=== PATIENT | male | born 1945 | race Caucasian/White ===

== ENCOUNTER → 2016-07-17 | Outpatient (CLI) | payer MEDICARE ==
--- NOTE | 2016-07-17 11:13 | CT ---
EXAMINATION TYPE: CT sinus wo con DATE OF EXAM: 07/17/2016 8:35 AM COMPARISON: 08/02/2012 HISTORY: 70-year-old male sinusitis, pain. CT DLP: 563 mGycm Automated exposure control for dose reduction was used. TECHNIQUE: Noncontrast axial views of the paranasal sinuses were obtained. Coronal reconstructions pe rformed. FINDINGS: There is mild mucosal thickening throughout the ethmoid air cells and the right maxillary sinus. Smal l air-fluid levels are present in both maxillary sinuses. Reactive gil- osteogenesis is not seen. There is no destruction of the osseous landry of the paranasal sinuses. The osteomeatal complexes are patent. Very minimal rightward nasal septal bowing. The imaged brain and orbits are normal in appearance. Mastoid air cells and middle ear cavities are well pneumatized. Reformatted images confirm above findings. IMPRESSION: 1. Small air-fluid levels in the maxillary sinuses suggest acute sinusitis. 2. Mild chronic mucosal thickening within the ethmoid air cells and right maxillary sinus.
== END | disposition home or self-care (01) ==
LOC: RADCTMAIN 08:06
PROVIDERS: ATTEND Otolaryngology
DX: J34.89 Other specified disorders of nose and nasal sinuses (principal)
CPT/HCPCS: 70486

== ENCOUNTER → 2021-01-03 | Outpatient (CLI) | payer MEDICARE | END | disposition home or self-care (01) | LOC: LABWHC1 16:10 | PROVIDERS: ATTEND Orthopaedic Surgery | DX: Z01.818 Encounter for other preprocedural examination (principal); R94.31 Abnormal electrocardiogram [ECG] [EKG] | CPT/HCPCS: 36415; 93005 ==

== ENCOUNTER 2021-01-07 11:01 | Day surgery (SDC) | payer MEDICARE ==
[2021-01-02 11:21] VITALS: BMI 33.0
--- NOTE | 2021-01-06 08:40 | HP ---
HISTORY AND PHYSICAL CHIEF COMPLAINT: Right knee pain. HISTORY OF PRESENT ILLNESS: Patient is a 75-year-old retired male who presents with progressive right knee pain for the past several years. He notes pain with weightbearing activities that severely limits him. He also notes stiffness and swelling. He has tried medications in addition to injections with only partial temporary relief. PAST MEDICAL HISTORY: Significant for hypercholesterolemia, hypertension, and arthritis. PAST SURGICAL HISTORY: Significant for sinus surgery. CURRENT MEDICATIONS: Aspirin, lisinopril, ranitidine, simvastatin, ibuprofen. ALLERGIES: He denies drug allergies. FAMILY HISTORY: Significant for heart disease and cancer. SOCIAL HISTORY: Significant for current social alcohol use in addition to previous tobacco use. REVIEW OF SYSTEMS: Sixteen-point review of systems otherwise reviewed and noncontributory. PHYSICAL EXAMINATION: On examination, the patient is approximately 6 foot 1, 240 pounds of endomorphic habitus. HEENT exam is nonfocal. Neck is supple. He has painless passive motion of the right hip. Straight leg raise is negative. Active motion right knee -12 to 114 degrees of flexion. He has mild effusion. He is tender about the medial joint line. Collaterals are stable, Shannon is negative, Raul's elicits medial pain. He has genu varum alignment. His distal neurovascular exam appears intact in the right lower extremity. Weightbearing notch, lateral and Merchant views of the right knee obtained in the office show severe medial compartment narrowing along with subchondral sclerosis and [id number] changes. Medial compartment spurring is noted. IMPRESSION: Right knee severe medial compartment osteoarthrosis-symptomatic. RECOMMENDATIONS: I talked to the patient at length regarding his condition and treatment options. At this point, he is quite limited because of pain related to his osteoarthrosis despite previous conservative measures. He notes he has also lost 50 pounds over the last year. After thorough discussion, he opts to proceed with surgery. We will plan to proceed with right total knee arthroplasty. We will institute DVT prophylaxis postoperatively. MMODL / IJN: [id number] /
[~2021-01-07 11:01] MED LIST: ACETAMINOPHEN TAB 500 MG TAB PO PRN; DEXAMETHASONE SOD PHOSPHATE 4 MG/ML 1 ML VIAL IV ONE; HYDROmorphone 0.5 MG/0.5 ML SYRINGE IVP PRN; LACTATED RINGERS 1,000 ML IV SCH; MELOXICAM 7.5 MG TAB PO PRN; MIDAZOLAM 2 MG/2 ML VIAL IV PRN; ONDANSETRON 4 MG/2 ML VIAL IVP ONE; TRANEXAMIC ACID 1,000 MG in SODIUM CHLORIDE 0.9% 100 ML IVPB PRN
[2021-01-07] MEDS ORDERED: SCOPOLAMINE 1.5MG/72HR PATCH TRANSDERM ONE (12:31)
[2021-01-07] MEDS ORDERED: fentaNYL (PF) 50 MCG/ML 2 ML AMP IVP ONE (13:02)
[2021-01-07] MEDS ORDERED: MIDAZOLAM 2 MG/2 ML VIAL IVP ONE (13:02)
[2021-01-07] MEDS ORDERED: ePHEDrine 50 MG/ML 1 ML AMP ONE (13:24)
[2021-01-07] MEDS ORDERED: ROPIVACAINE 5 MG/ML 30 ML VIAL ONE (13:24)
[2021-01-07] MEDS ORDERED: PROPOFOL 10 MG/ML 20 ML VIAL IV ONE (13:24)
[2021-01-07] MEDS ORDERED: MIDAZOLAM 2 MG/2 ML VIAL ONE (13:24)
[2021-01-07] MEDS ORDERED: SODIUM CHLORIDE 0.9% 100 ML BAG ONE (13:24)
[2021-01-07] MEDS ORDERED: TRANEXAMIC ACID 1,000 MG/10 ML VIAL ONE (13:24)
[2021-01-07] MEDS ORDERED: fentaNYL (PF) 50 MCG/ML 2 ML AMP ONE (13:24)
[2021-01-07] MEDS ORDERED: GLYCOPYRROLATE 0.2 MG/ML 2 ML VIAL ONE (13:24)
[2021-01-07] MEDS ORDERED: SODIUM CHLORIDE 0.9% (PF) 10 ML VIAL ONE (13:24)
[2021-01-07] MEDS ORDERED: ceFAZolin 1,000 MG in SODIUM CHLORIDE 0.9% 1,000 ML IRRIGATION ONE (13:56)
[2021-01-07] MEDS ORDERED: LACTATED RINGERS 1,000 ML IV ONE ×2 (14:22→18:10)
[2021-01-07] MEDS ORDERED: ONDANSETRON 4 MG/2 ML VIAL IVP PRN (15:13)
[2021-01-07] MEDS ORDERED: NALOXONE 0.4 MG/ML 1 ML VIAL IV PRN (15:13)
[2021-01-07] MEDS ORDERED: ACETAMINOPHEN TAB 325 MG TAB PO PRN (15:13)
[2021-01-07] MEDS ORDERED: MAGNESIUM HYDROXIDE 2,400 MG/10 ML CUP PO PRN (15:13)
[2021-01-07] MEDS ORDERED: HYDROmorphone 1 MG/ML 1 ML SYRINGE IVP PRN (15:13)
--- NOTE | 2021-01-07 15:39 | P.OP ---
Date of Procedure: 01/07/21 Preoperative Diagnosis: Right knee severe tricompartmental osteoarthrosis Postoperative Diagnosis: Same Procedure(s) Performed: Right total knee arthroplastycementedposterior stabilized Implants: Depuy Attune size 8 cemented femoral component, size 7 cemented tibial component, 9 mm articular surface, 38 mm cemented patellar component. This is a posterior stabilized implant. Anesthesia: regional, spinal Surgeon: Shay Landers Instrumental Musician #1: Juan Pablo Lopez Pathology: other (Bone fragments) Condition: stable Disposition: PACU Indications for Procedure: The patient is a 75-year-old male who presents with persistent/progressive right knee pain secondary to osteoarthrosis despite conservative measures. A discussion of the risks and benefits of operative intervention versus continued conservative measures was made with patient. He opted to proceed with surgery. Operative risks to include infection, neurovascular injury, fracture, development of blood clots, possible component loosening/failure need for subsequent procedures was discussed. Informed consent was obtained. Operative Findings: As below Description of Procedure: The patient was brought to the operating room, and after induction of spinal anesthesia the right lower extremity was prepped and draped in a normal fashion. The tourniquet was inflated to 270 mm marker. A longitudinal incision extending 3 finger breaths above the superior pole of patella extending to the medial aspect the tibial tubercle was then made. The skin and subcutaneous tissues were divided sharply. Electrocautery was used for hemostasis. A medial parapatellar arthrotomy was performed. The medial soft tissues to include the superficial and deep portions of the medial collateral ligament were elevated subperiosteally. The patella was everted. A portion of the retropatellar fat pad was excised sharply. The anterior cruciate ligament was sacrificed. Blunt retractors were placed. A starting hole was made in the distal femur 1 cm anterior to the posterior cruciate ligament origin. An intramedullary femoral guide was then inserted planning on 5 valgus distal cut with 9 mm distal resection. The cutting block was pinned in place. The distal cut was then made. The posterior referencing sizing guide was utilized. I felt size 8 was most appropriate. 3 of external rotation was built into the system and verified off the trans-epicondylar axis and the posterior condyles. The cutting block was pinned in place. The anterior, posterior, and chamfer cuts then made. Bone fragments were removed. The intercondylar guide was placed and the notch cut was made with a sagittal saw. The bone block was removed in one fragment. The trial component was then placed. There is good anterior to posterior and medial to lateral fit. The distal peg holes were drilled. The trial component was removed. Attention was then paid towards preparing the proximal femur. An extra medullary guide was utilized in line with the tibial shaft and second metatarsal distally. I planned on 2 mm resection from the medial compartment. The cutting block was pinned in place. The proximal tibial cut was then made. The bone was removed in one fragment. The remnants of the medial and lateral menisci were excised at the capsular junction with electrocautery. The tibia sized most appropriately at size 7. The trial femoral and tibial components were placed along with a 9 mm articular surface. I was able to obtain full flexion and extension with internal and external rotation. After several flexion and extension cycles, the tibial rotation was marked with electrocautery line with the medial one third of the tibial tubercle. Attention was then paid towards preparing the patella. A patella reamer was utilized taking stem to 14 mm of bone stock. A good flush cut was made. The patella sized most appropriately 38 mm. The peg holes were drilled. The trial components placed. I had good patellofemoral tracking with no hands technique. The trial components were then removed. The tibia was prepared in the appropriate rotation with appropriate drill and keel punch. The posterior osteophytes were removed with a curved osteotome. The flexion and extension gaps were checked and felt to be symmetric at 9 mm. A trial components were then removed. The bony surfaces were prepared with pulsatile lavage and dried. The tibial component was then cemented place was fully seated. Excess cement was removed. The femoral component cemented place and was fully seated. Excess cement was removed. The trial 9 mm articular surface was placed and the knee was put in full extension. The patella component was cemented place. After the cement had sufficiently hardened, the knee was again taken through a range of motion. Again I was able to obtain full flexion and extension with varus and valgus stress. The trial 9 mm articular surface was removed and the final one inserted. This was fully seated. Care was taken to avoid any soft tissue interposition. Pulsatile lavage was again utilized. The medial parapatellar arthrotomy was closed with #2 Ethibond suture. The tourniquet was deflated with approximately 65 minutes total tourniquet time. Final hemostasis was obtained with the cautery. There was minimal bleeding therefore a deep drain was not placed. The subcutaneous tissues were reapproximated with interrupted 2-0 Vicryl sutures. The skin was reapproximated with 3-0 subcuticular strata fix suture. Skin tape and adhesive was applied. A sterile dressing was applied. The patient was awoken from sedation and transferred to recovery room in good condition. Blood loss was estimated at 50 mL. No complications were incurred. Sponge and needle counts were correct at the end of the case. Toni BAY assisted during the major components of this case to include exposure, bone resection, implantation, and closure.
[2021-01-07] MEDS ORDERED: ROPIVACAINE 0.2%-NS ON-Q PUMP 1,090 MG, EMPTY PAIN BALL 1 EACH MISCELLANE PRN (15:41)
--- NOTE | 2021-01-07 15:58 | XR ---
EXAMINATION TYPE: XR knee limited RT DATE OF EXAM: 01/07/2021 CLINICAL HISTORY: Right knee pain and arthritis status post total knee replacement. TECHNIQUE: Portable AP and crosstable lateral views of the right knee are obtained immediately posto peratively. COMPARISON: Outside right knee x-ray December 09, 2020 FINDINGS: Metallic hardware from total right knee arthroplasty is seen and appears satisfactory in a lignment and position. There is evidence of recent surgery with diffuse subcutaneous gas and soft ti ssue swelling. IMPRESSION: METALLIC HARDWARE FROM TOTAL RIGHT KNEE ARTHROPLASTY IS SATISFACTORY IN ALIGNMENT.
--- NOTE | 2021-01-07 18:09 | P.ANPRN ---
Procedure Note - Anesthesia - Nerve Block Performed Right Adductor Canal Infusion Time Out Performed: Yes (1301) Date of Procedure: 01/07/21 Procedure Start Time: 13:03 Procedure Stop Time: 13:08 Location of Patient: PreOp Indication: Acute Post-Operative Pain, Requested by Surgeon Specifically requested for management of pain by DrPatricio: Shay Landers Sedation Type: Sedate with meaningful contact maintained Preparation: Sterile Prep, Sterile Dressing Position: Supine Catheter Depth at Skin (cm): 8 Catheter: Indwelling Needle Types: Pajunk Needle Gauge: 21 Ultrasound used to visualize needle placement: Yes Ultrasound used to observe medication spread: Yes Injectate: 0.5% Ropivacaine (see comment for volume) (15cc) Blood Aspirated: No Pain Paresthesia on Injection Noted: No Resistance on Injection: Normal Image Stored and Saved: Yes Events: Uneventful and Well Tolerated Right iPack Single Time Out Performed: Yes (1301) Date of Procedure: 01/07/21 Procedure Start Time: 13:09 Procedure Stop Time: 13:14 Location of Patient: PreOp Indication: Acute Post-Operative Pain, Requested by Surgeon Specifically requested for management of pain by Dr.: Shay Landers Sedation Type: Sedate with meaningful contact maintained Preparation: Sterile Prep Position: Supine Catheter: None Needle Types: Pajunk Needle Gauge: 21 Ultrasound used to visualize needle placement: Yes Ultrasound used to observe medication spread: Yes Injectate: 0.5% Ropivacaine (see comment for volume) (15cc) Blood Aspirated: No Pain Paresthesia on Injection Noted: No Resistance on Injection: Normal Image Stored and Saved: Yes Events: Uneventful and Well Tolerated
[2021-01-07] MEDS: HYDROmorphone 0.5 MG/0.5 ML SYRINGE IVP PRN (19:27)
[2021-01-07] MEDS ORDERED: ATORVASTATIN 20 MG TAB PO SCH (21:00)
[2021-01-07] MEDS ORDERED: SENNOSIDES-DOCUSATE SODIUM 1 EACH TAB PO SCH (21:00)
[2021-01-07] MEDS: HYDROcodone/APAP 7.5-325MG 1 EACH TAB PO PRN (23:00)
[2021-01-07] MEDS: lisinopriL 10 MG TAB PO SCH (23:01)
[2021-01-08] MEDS: HYDROmorphone 0.5 MG/0.5 ML SYRINGE IVP PRN (03:19)
[2021-01-08] MEDS: HYDROcodone/APAP 5-325MG 1 EACH TAB PO PRN ×2 (05:35→09:53)
[2021-01-08 06:24] LABS: Basophils % (A) 0 %; Eosinophils % (A) 0 %; HCT 37.6 % (39.0-53.0); HGB 12.4 gm/dL (13.0-17.5); Lymphocytes # (A) 0.8 k/uL (1.0-4.8); Lymphocytes % (A) 12 %; MCH 33.9 pg (25.0-35.0); MCV 102.6 fL (80.0-100.0); Macrocytosis Slight; Mean Platelet Volume 7.4; Monocytes # (A) 0.5 k/uL (0-1.0); Monocytes % (A) 7 %; Neutrophils # (A) 5.4 k/uL (1.3-7.7); Neutrophils % (A) 79 %; Platelet Count 153 k/uL (150-450); RBC 3.66 m/uL (4.30-5.90); RDW 12.2 % (11.5-15.5); WBC 6.8 k/uL (3.8-10.6)
[2021-01-08 07:51] VITALS: BP 106/58; PULSE 47; RESP 18; TEMP 98.3
[2021-01-08] MEDS ORDERED: RIVAROXABAN 10 MG TAB PO SCH (09:00)
[2021-01-08] MEDS: lisinopriL 10 MG TAB PO SCH (09:49)
--- NOTE | 2021-01-08 09:52 | P.DS ---
Providers Date of admission: 01/07/2021 Expected date of discharge: 01/08/21 Attending physician: Shay Landers Consults: 01/07/21 15:13 Consult Physician Routine Consulting Provider: Cornelio Montesinos Consult Reason/Comments: medical management Do you want consulting provider notified?: Yes Primary care physician: Cornelio Montesinos Hospital Course: Date of admission: 01/07/2021 Date of discharge: 01/08/2021 Admission diagnosis: Right knee osteoarthritis Discharge diagnosis: Same Attending physician: Dr. Landers Surgical procedures: Right total knee arthroplasty Brief history: Patient is a 75-year-old male with a history of progressive primary right knee osteoarthritis. At this point patient has failed conservative treatment measures and has opted to proceed with a elective right total knee arthroplasty. Hospital course: Details of patient's surgery can be found in operative report. Patient tolerated the procedure well and was subsequently transported to orth opedic floor. Patient's orthopeidc and medical care was provided daily. Patient had daily laboratory tests performed for evaluation of overall blood counts. Patient had daily physical therapy to include strengthening range of motion as well as education with walker ambulation. Patient was treated with Xarelto for their postoperative DVT prophylaxis during their inpatient stay. Patient was noted to have a relatively uneventful postoperative course. Patient reported satisfactory pain control with oral pain medications by postoperative day 1. Patient showed satisfactory progress with physical therapy. Patient moved steadily through the program and had no difficulty meeting the goals by postoperative day 1. Given patient's otherwise satisfactory course and having met physical therapy goals, plan is to discharge patient home]on postoperative day 1. Discharge condition/disposition: Patient will be discharge [home] in stable condition. Discharge medications: Instructions are given on resumption of patient's normal daily medications per primary care recommendation, in addition patient will be prescribe [place] 7.5 mg/325 mg; Colace 100 mg; Eliquis 2.5 mg BID. Discharge instructions: 1. Wound care and infection precautions, keep incision dry and covered while showering, no lotions, creams, moisturizers. No soaking, tubs, pools, hottubs. Do not scrub over the incision. 2. Weight-bear as tolerated with walker / cane until follow-up. 3. Ice and elevate when necessary. Do not exceed 20 minutes per hour with ice pack. 4. Utilize compression sleeve until seen at first follow up appointment. 5. Visiting nursing care. 6. Home physical therapy including home CPM. 7. Pain meds and anticoagulants per prescription. 8. Pain medication has potential to cause constipation. Increase oral fluid and fiber intake. Contact primary care provider if you have not had a bowel movement within 48 hours after discharge 9. No anti-inflammatory medication until discussed at first post operative visit, this including Motrin, Aleve, Mobic, Diclofenac. 10. Follow up in office at 2 weeks postop with Toni Lopez PA-C / Nick Rollins PA-C 11. Follow up with your primary care doctor 7-10 days after discharge. 12. Contact [facility] with any questions, . Keep mesh tape on until follow-up appointment in 2 weeks. While showering, cover mesh tape was Saran wrap. Assessment: Right knee osteoarthritis Procedures: Right total knee arthroplasty Patient Condition at Discharge: Good Plan - Discharge Summary Discharge Rx Participant: No New Discharge Prescriptions: New Apixaban [Eliquis] 2.5 mg PO BID #60 tab Docusate [Colace] 100 mg PO DAILY #30 capsule HYDROcodone/APAP 7.5-325MG [[place] 7.5] 1 each PO Q6HR PRN #36 tab PRN Reason: Pain Discontinued Ibuprofen [Motrin] 200 mg PO DAILY No Action Simvastatin 40 mg PO HS Aspirin [Adult Low Dose Aspirin EC] 81 mg PO HS lisinopriL [Zestril] 10 mg PO BID Discharge Medication List Simvastatin 40 mg PO HS 08/31/15 [History] Aspirin [Adult Low Dose Aspirin EC] 81 mg PO HS 09/04/15 [History] lisinopriL [Zestril] 10 mg PO BID 01/02/21 [History] Apixaban [Eliquis] 2.5 mg PO BID #60 tab 01/08/21 [Rx] Docusate [Colace] 100 mg PO DAILY #30 capsule 01/08/21 [Rx] HYDROcodone/APAP 7.5-325MG [[place] 7.5] 1 each PO Q6HR PRN #36 tab 01/08/21 [Rx] Follow up Appointment(s)/Referral(s): Nick Rollins, JOSEPH [PHYSICIAN COMPOUND MIXER] - 2 Weeks Patient Instructions/Handouts: Knee Replacement (GEN) Activity/Diet/Wound Care/Special Instructions: Orthopedic Discharge Instructions: 1. Wound care and infection precautions, keep incision dry and covered while showering, no lotions, creams, moisturizers. No soaking, pools, hot tubs. Do not scrub over incision. 2. Weight-bear as tolerated with walker / cane until follow-up. 3. Ice and elevate when necessary. Do not exceed 20 minutes per hour with ice pack. 4. Utilize compression sleeve until seen at first follow up appointment. 5. Pain meds and anticoagulants per prescription. 6. Pain medication has potential to cause constipation. Increase oral fluid and fiber intake. Contact primary care provider if you have not had a bowel movement within 48 hours after discharge. 7. No anti-inflammatory medication until discussed at first post operative visit, this including Motrin, Aleve, Mobic, Diclofenac. 8. Follow up in office at 2 weeks postop with Toni Lopez PA-C / Nick Rollins PA-C 9. Follow up with your primary care doctor 7-10 days after discharge. 10. Contact [facility] with any questions, . Keep mesh tape on until follow-up appointment in office in 2 weeks. While showering, cover mesh tape with Saran wrap Meds: [place] 7.5 mg/325 mg; Colace 100 mg; Eliquis 2.5 mg BID x 2 weeks Discharge Disposition: HOME WITH HOME HEALTH SERVICES
--- NOTE | 2021-01-08 10:29 | P.PN ---
Subjective Progress Note Date: 01/08/21 Principal diagnosis: Right knee osteoarthritis Patient was seen at bedside morning resting sitting up in chair. Patient states his knee is in moderate amount pain most of it is located at front of knee. Patient says this morning he did get up with his therapy and walk down the h [place] and walked up-and-down a couple stairs. Patient says he would like to go home today. He says he does live at home with his . Patient says he does have a walker at home. Patient says he has not had bowel movement yet, however, he says he has been passing gas. Patient denies chest pain, fever, shortness of breath,, vomiting, loss of bowel/bladder control. Objective - Vital Signs Vital signs: Vital Signs Temp 98.3 F 01/08/21 07:50 Pulse 47 L 01/08/21 07:50 Resp 18 01/08/21 07:50 BP 106/58 01/08/21 07:50 Pulse Ox 96 01/08/21 07:50 Intake & Output 01/07/21 01/08/21 01/08/21 18:59 06:59 18:59 Intake Total 2050 Output Total 50 3 Balance 2000 Weight 114.3 kg Intake: IV 2050 Output: Urine 3 Estimated Blood Loss 50 Other: # Voids 2 - Exam Right knee: Incision is clean, dry, and intact. The exofin fusion tape is in good condition. There is minimal soft tissue swelling and ecchymosis surrounding the medial and lateral aspects of the incision. Calf is soft, no tenderness with palpation. Plantar flexion, dorsiflexion, EHL, FHL are intact. Sensory exam to light touch throughout the extremity is intact, dorsal pedis pulses 2+. - Labs CBC & Chem 7: 01/08/21 05:26 Labs: Abnormal Lab Results - Last 24 Hours (Table) 01/08/21 Range/Units 05:26 RBC 3.66 L (4.30-5.90) m/uL Hgb 12.4 L (13.0-17.5) gm/dL Hct 37.6 L (39.0-53.0) % MCV 102.6 H (80.0-100.0) fL Lymphocytes # 0.8 L (1.0-4.8) k/uL Assessment and Plan Assessment: Postop day #1 status post right knee arthroplasty Plan: 1. Right knee osteoarthritis - surgery performed yesterday. Patient stable for discharge home today with health services 2. Appreciate medical management 3. Pain Management - Going home with [place] 7.5mg/325mg 4. DVT ppx - Going home with Eliquis 2.5 mg BID x 2 weeks 5. GI ppx - going home with Colace 100 mg 6. Encourage incentive spirometer use 7. Discharge planning - Discharge home today with health services. Time with Patient: Less than 30
[2021-01-08] MEDS: HYDROcodone/APAP 7.5-325MG 1 EACH TAB PO PRN (11:26)
[2021-01-08 12:41] LABS: African American GFR (CKD) 91.9 (60.0-200.0); Albumin 3.7 g/dL (3.8-4.9); Albumin/Globulin Ratio 1.93 (1.60-3.17); Anion Gap 11.2 mmol/L (4.00-12.00); BUN/Creat Ratio 18.88 Ratio (12.00-20.00); Blood Urea Nitrogen 17.9 mg/dL (9.0-27.0); Calcium 8.5 mg/dL (8.7-10.3); Carbon Dioxide 22.8 mmol/L (21.6-31.8); Globulin 1.9 g/dL (1.6-3.3); Non-African American GFR(CKD) 79.3 (60.0-200.0); Potassium 4.1 mmol/L (3.5-5.5); Total Bilirubin 0.4 mg/dL (0.30-1.20); Total Protein 5.6 g/dL (6.2-8.2)
--- NOTE | 2021-01-08 13:57 | P.PN ---
Progress Note - Text 01/08/21 1318 75-year-old male status post total knee replacement by Dr. Landers. Patient has an On-Q pump for postop pain control with the solution running at 8 mL an hour with a VAS of 5 at rest. Pain is primarily located posteriorly. Plan to continue On-Q pump infusion
== END 2021-01-08 13:31 | disposition home health service (06) ==
LOC: OR 11:01 → 4SSUR 15:36 → OR 01-08 13:31
PROVIDERS: ATTEND Orthopaedic Surgery
DX: M17.11 Unilateral primary osteoarthritis, right knee (principal); Z79.01 Long term (current) use of anticoagulants; Z79.82 Long term (current) use of aspirin; Z20.822 Contact with and (suspected) exposure to COVID-19
CPT/HCPCS: 27447; 97161; 64999; 64448; 76942; 80053; 83735; 85025; 86618; 87635; 73560; C1713 ×2; C1776; J2250; J1100; J0690 ×3; J2405; J3010; J1170 ×3; J2795; 88300

== ENCOUNTER → 2022-02-16 | Outpatient (CLI) | payer MEDICARE ==
--- NOTE | 2022-02-16 11:16 | US ---
EXAMINATION TYPE: US carotid duplex BILAT DATE OF EXAM: 02/16/2022 COMPARISON: NONE CLINICAL HISTORY: R42 DIZZINESS AND GIDDINESS. Pt states episodes of dizziness TECHNIQUE: Carotid duplex ultrasound examination. Indirect Doppler criteria was utilized. FINDINGS: EXAM MEASUREMENTS: RIGHT: Peak Systolic Velocity (PSV) cm/sec ----- Right CCA: 117.3 ----- Right ICA: 104.3 ----- Right ECA: 127.0 ICA/CCA ratio: 0.9 RIGHT: End Diastole cm/sec ----- Right CCA: 24.1 ----- Right ICA: 34.4 ----- Right ECA: 17.1 LEFT: Peak Systolic Velocity (PSV) cm/sec ----- Left CCA: 118.5 ----- Left ICA: 114.7 ----- Left ECA: 101.7 ICA/CCA ratio: 1.0 LEFT: End Diastole cm/sec ----- Left CCA: 26.7 ----- Left ICA: 31.8 ----- Left ECA: 12.4 VERTEBRALS (direction of flow): Right Vertebral: Antegrade Left Vertebral: Antegrade Rhythm: Normal [employer] DEPARTMENT CHAIR NOTES: No significant stenosis seen [place] Vega scale images show no significant focal plaque. IMPRESSION: No hemodynamically significant stenosis in either internal carotid artery. Criteria for Assigning % of Stenosis / Diameter reduction (Estimation based on the indirect measurements of the internal carotid artery velocities (ICA PSV). 1. Normal (no stenosis)=ICA PSV < 125 cm/s: ratio < 2.0: ICA EDV<40 cm/s. 2. Less than 50% stenosis=ICA PSV < 125 cm/s: ratio < 2.0: ICA EDV<40 cm/s. 3. 50 to 69% stenosis=ICA PSV of 125 to 230 cm/s: ration 2.0 ? 4.0: ICA EDV 40-100 cm/s. 4. Greater than 70% stenosis to near occlusion= ICA PSV > 230 cm/s: ratio > 4.0: ICA EDV > 100 cm/s. 5. Near occlusion= ICA PSV velocities may be low or undetectable: variable ratio and ICA EDV. 6. Total occlusion=unable to detect flow.
== END | disposition home or self-care (01) ==
LOC: RADUSWWP 10:49
PROVIDERS: ATTEND Family Medicine
DX: R42 Dizziness and giddiness (principal)
CPT/HCPCS: 93880

== ENCOUNTER → 2022-08-17 | Outpatient (CLI) | payer MEDICARE ==
[2022-08-17 16:56] LABS: Basophils # (A) 0.04 X 10*3/uL (0.00-0.10); Eosinophils # (A) 0.17 X 10*3/uL (0.04-0.35); Eosinophils % (A) 4.2 %; HCT 40.9 % (39.6-50.0); HGB 13.1 d/dL (12.0-15.0); Lymphocytes # (A) 1.06 X 10*3/uL (0.90-5.00); Lymphocytes % (A) 26.2 %; MCH 30.7 pg (27.0-32.0); MCV 95.8 FL (80.0-97.0); Mean Platelet Volume 9.5 FL (9.5-12.2); Monocytes % (A) 17.3 %; NRBC Per 100 WBC 0 X 10*3/uL (0.00-0.01); Neutrophils # (A) 2.06 X 10*3/uL (1.80-7.70); Neutrophils % (A) 51.1 %; Platelet Count 159 X 10*3/uL (140-440); RBC 4.27 X 10*6/uL (4.40-5.60); RDW 12.8 % (11.5-14.5); WBC 4.04 X 10*3/uL (4.50-10.00)
[2022-08-18 06:01] LABS: Hepatitis BE Antibody Nonreactive (Nonreactive); Hepatitis BE Antigen Nonreactive (Nonreactive)
[2022-08-18 18:35] LABS: ALT 71 U/L (10-49); AST 105 U/L (14-35); Albumin 4.7 d/dL (3.8-4.9); Albumin/Globulin Ratio 1.74 Ratio (1.60-3.17); Alkaline Phosphatase 71 U/L (41-126); Blood Urea Nitrogen 14.7 mg/dL (9.0-27.0); Calcium 9.7 mg/dL (8.7-10.3); Carbon Dioxide 23.1 mmol/L (21.6-31.8); Chloride 101 mmol/L (96-109); Globulin 2.7 d/dL (1.6-3.3); Glucose 86 mg/dL (70-110); Potassium 4.4 mmol/L (3.5-5.5); Sodium 140 mmol/L (135-145); Total Bilirubin 0.3 mg/dL (0.3-1.2); Total Protein 7.4 d/dL (6.2-8.2)
[2022-08-18 18:37] LABS: Hepatitis B Core IgM Nonreactive; Hepatitis B Surface Antigen Nonreactive; Hepatitis C IgG Antibody Nonreactive
[2022-08-19 05:22] LABS: Hepatitis B Surface AB- Quant 3.5 mIU/mL
== END | disposition home or self-care (01) ==
LOC: LABWHC1 07:30
PROVIDERS: ATTEND Dermatology
DX: L30.9 Dermatitis, unspecified (principal)
CPT/HCPCS: 36415; 80053; 85025; 86480; 86704; 86705; 86706; 86707; 86803; 87340; 87350

== ENCOUNTER 2023-03-18 14:22 | Emergency (ER) | payer MEDICARE ==
[2023-03-18 15:19] LABS: Basophils # (A) 0.1 k/uL (0-0.2); Basophils % (A) 1 %; Eosinophils # (A) 0.1 k/uL (0-0.7); Eosinophils % (A) 1 %; HCT 40.4 % (39.0-53.0); HGB 13.1 gm/dL (13.0-17.5); Lymphocytes # (A) 0.9 k/uL (1.0-4.8); Lymphocytes % (A) 15 %; MCH 30.2 pg (25.0-35.0); MCHC 32.3 g/dL (31.0-37.0); MCV 93.3 fL (80.0-100.0); Mean Platelet Volume 8.2; Monocytes # (A) 0.4 k/uL (0-1.0); Monocytes % (A) 7 %; Neutrophils # (A) 4.7 k/uL (1.3-7.7); Neutrophils % (A) 75 %; Platelet Count 167 k/uL (150-450); RBC 4.33 m/uL (4.30-5.90); RDW 15.3 % (11.5-15.5); WBC 6.3 k/uL (3.8-10.6)
[2023-03-18 15:28] LABS: INR 1.1 (<1.2); Partial Thromboplastin Time 24.7 sec (22.0-30.0); Prothrombin Time 11.5 sec (10.0-12.5)
[2023-03-18 15:58] LABS: ALT 51 U/L (4-49); AST 102 U/L (17-59); African American GFR (CKD) >90 (>60 ml/min/1.73 sqM); Albumin 4.4 g/dL (3.5-5.0); Alkaline Phosphatase 80 U/L (38-126); Anion Gap 10 mmol/L; Blood Urea Nitrogen 19 mg/dL (9-20); Calcium 9.3 mg/dL (8.4-10.2); Carbon Dioxide 26 mmol/L (22-30); Chloride 107 mmol/L (98-107); Glucose 106 mg/dL (74-99); Non-African American GFR(CKD) 87 (>60 ml/min/1.73 sqM); Potassium 4.2 mmol/L (3.5-5.1); Sodium 143 mmol/L (137-145); Total Bilirubin 0.8 mg/dL (0.2-1.3); Total Protein 7.4 g/dL (6.3-8.2)
--- NOTE | 2023-03-18 16:09 | ED ---
GI Bleed HPI - General Chief complaint: GI Bleed Stated complaint: blood in stool Time Seen by Provider: 03/18/23 14:52 Source: patient Mode of arrival: ambulatory Limitations: no limitations - History of Present Illness Initial comments: Avelino is a 77-year-old gentleman who presents to the emergency department today for evaluation of GI bleeding. Patient states he has had episodes of this in the distant past but usually only one or 2 episodes and then it resolves spontaneously. Patient reports that yesterday evening he had sudden onset of diarrhea that was black tarry stools. Patient states it came on so suddenly he didn't even make it to the restroom. He states that throughout the day he had 3 more episodes and today 2-3 episodes but the episodes became less black and tarry and more red blood. Last - Related Data Home Medications Medication Instructions Recorded Confirmed Simvastatin 40 mg PO HS 08/31/15 03/18/23 Aspirin [Adult Low Dose Aspirin EC] 81 mg PO HS 09/04/15 03/18/23 lisinopriL [Zestril] 10 mg PO BID 01/02/21 03/18/23 Dutasteride 0.5 mg PO DAILY 06/23/22 03/18/23 Dupilumab [Dupixent Pen] 300 mg SQ Q14D 03/18/23 03/18/23 EPINEPHrine (Auto Inject) [Epipen] 0.3 mg IM ONCE PRN 03/18/23 03/18/23 Meloxicam [Mobic] 15 mg PO Q48H 03/18/23 03/18/23 Pantoprazole [Protonix] 40 mg PO DAILY 03/18/23 03/18/23 Tobramycin/Dexamethasone [Tobradex 1 drop BOTH EYES QID 03/18/23 03/18/23 Ophth Susp] Allergies Allergy/AdvReac Type Severity Reaction Status Date / Time No Known Allergies Allergy Verified 03/18/23 16:14 Review of Systems ROS Statement: Those systems with pertinent positive or pertinent negative responses have been documented in the HPI. ROS Other: All systems not noted in ROS Statement are negative. 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 tinnitis pedrito ears. History of Any Multi-Drug Resistant Organisms: None Reported Past Surgical History: Joint Replacement Additional Past Surgical History / Comment(s): sinus sx x2, testicular hydrocele repair with Dr. Bowen in 2008, rt knee replaced. Past Anesthesia/Blood Transfusion Reactions: Motion Sickness, Postoperative Nausea & Vomiting (PONV) Past Psychological History: No Psychological Hx Reported Smoking Status: Former smoker Past Alcohol Use History: Daily Past Drug Use History: None Reported - Past Family History Mother Family Medical History: Cancer Additional Family Medical History / Comment(s): bone cancer 1975 Father Family Medical History: Congestive Heart Failure (CHF) General Exam Limitations: no limitations Course Vital Signs 03/18/23 03/18/23 03/18/23 14:39 16:22 17:00 Temperature 98.5 F 98.5 F Pulse Rate 75 65 68 Respiratory 20 20 16 Rate Blood Pressure 162/80 158/85 198/108 O2 Sat by Pulse 95 98 96 Oximetry 03/18/23 03/18/23 19:05 20:00 Temperature 98.0 F 98.3 F Pulse Rate 65 66 Respiratory 18 18 Rate Blood Pressure 151/87 149/87 O2 Sat by Pulse 93 L 98 Oximetry Medical Decision Making - Medical Decision Making Was pt. sent in by a medical professional or institution ([facility], [facility], urgent ca re, hospital, or [place] health care facility...) When possible be specific @ -No Did you speak to anyone other than the patient for history (EMS, parent, family, police, friend...)? What history was obtained from this source @ -No Did you review nursing and triage notes (agree or disagree)? Why? @ -I reviewed and agree with nursing and triage notes Were old charts reviewed (outside hosp., previous admission, EMS record, old EKG, old radiological studies, urgent care reports/EKG's, [place] health care facility records)? Report findings @ -Previous labs were reviewed Differential Diagnosis (chest pain, altered mental status, abdominal pain women, abdominal pain men, vaginal bleeding, weakness, fever, dyspnea, syncope, headache, dizziness, GI bleed, back pain, seizure, CVA, palpatations, mental health)? @ -Differential GI Bleed: Esophageal varices, aortoenteric fistula, [place], gastritis, peptic ulcer disease, diverticulosis, inflammatory bowel disease, hemorrhoids, fissure, colitis, malignancy, Meckels diverticulum, this is not meant to be an all- inclusive list. EKG interpreted by me (3pts min.). @ -As above X-rays interpreted by me (1pt min.). @ -None done CT interpreted by me (1pt min.). @ -None done U/S interpreted by me (1pt. min.). @ -None done What testing was considered but not performed or refused? (CT, X-rays, U/S, labs)? Why? @ -None What meds were considered but not given or refused? Why? @ -None Did you discuss the management of the patient with other professionals (professionals i.e. , PA, [employer], lab, RT, psych nurse, social media executive, manufacturer agent, teacher, [employer] plans staff officer, pillowcase maker)? Give summary @ -No Was smoking cessation discussed for >3mins.? @ -No Was critical care preformed (if so, how long)? @ -Yes Were there social determinants of health that impacted care today? How? (Homelessness, low income, unemployed, alcoholism, drug addiction, trans portation, low edu. Level, literacy, decrease access to med. care, [facility], rehab)? @ -No Was there de-escalation of care discussed even if they declined (Discuss DNR or withdrawal of care, Hospice)? DNR status @ -No What co-morbidities impacted this encounter? (DM, HTN, Smoking, COPD, CAD, Cancer, CVA, ARF, Chemo, Hep., AIDS, mental health diagnosis, sleep apnea, morbid obesity)? @ -None Was patient admitted / discharged? Hospital course, mention meds given and route, prescriptions, significant lab abnormalities, going to OR and other pertinent info. @ -Transfer to outside hospital - [facility] The patient was seen and evaluated upon arrival to the emergency department. Patient with a history of alcohol abuse reports he drinks about 5 alcoholic drin ks per night has never had any GI evaluation the past. He's had black tarry stool since yesterday, now having bright red bowel movements. Estimated she's had 5 prior to arrival. Patient is hemodynamically stable hemoglobin today is 13.1 this is unchanged from previous. He has mild transaminitis. Results were discussed with the patient I do recommend he be transferred for evaluation as he has a high risk of having esophageal varices or gastritis. Patient was agreeable to transfer for evaluation by GI. Patient was treated with Protonix, Rocephin and octreotide due to his history of alcohol abuse. [facility] at capacity and unable to accept transfers, [facility] was at capacity and cleared and external disaster cannot accept transfers. [facility] was able to accept the transfer Dr. Irving accepts patient as ER to ER transfer. Reports 6 episodes of bright red blood per rectum while in the ER. Undiagnosed new problem with uncertain prognosis? @ -Yes Drug Therapy requiring intensive monitoring for toxicity (Heparin, Nitro, Insulin, Cardizem)? @ -Octreotide infusion Were any procedures done? @ -No Diagnosis/symptom? @ -GI bleeding Acute, or Chronic, or Acute on Chronic? @ -Acute Uncomplicated (without systemic symptoms) or Complicated (systemic symptoms)? @ -Uncomplicated Side effects of treatment? @ -No Exacerbation, Progression, or Severe Exacerbation? @ -No Poses a threat to life or bodily function? How? (Chest pain, [place], [place], pneumonia, PE, COPD, DKA, ARF, appy, cholecystitis, CVA, Diverticulitis, Homicidal, Suicidal, threat to staff... and all critical care pts) @ -Yes - Lab Data Result diagrams: 03/18/23 15:03 03/18/23 15:03 Lab Results 03/18/23 03/18/23 03/18/23 Range/Units 15:03 15:03 15:03 WBC 6.3 (3.8-10.6) k/uL RBC 4.33 (4.30-5.90) m/uL Hgb 13.1 (13.0-17.5) gm/dL Hct 40.4 (39.0-53.0) % MCV 93.3 (80.0-100.0) fL MCH 30.2 (25.0-35.0) pg MCHC 32.3 (31.0-37.0) g/dL RDW 15.3 (11.5-15.5) % Plt Count 167 (150-450) k/uL MPV 8.2 Neutrophils % 75 % Lymphocytes % 15 % Monocytes % 7 % Eosinophils % 1 % Basophils % 1 % Neutrophils # 4.7 (1.3-7.7) k/uL Lymphocytes # 0.9 L (1.0-4.8) k/uL Monocytes # 0.4 (0-1.0) k/uL Eosinophils # 0.1 (0-0.7) k/uL Basophils # 0.1 (0-0.2) k/uL PT 11.5 (10.0-12.5) sec INR 1.1 (<1.2) APTT 24.7 (22.0-30.0) sec Sodium 143 (137-145) mmol/L Potassium 4.2 (3.5-5.1) mmol/L Chloride 107 (98-107) mmol/L Carbon Dioxide 26 (22-30) mmol/L Anion Gap 10 mmol/L BUN 19 (9-20) mg/dL Creatinine 0.82 (0.66-1.25) mg/dL Est GFR (CKD-EPI)AfAm >90 (>60 ml/min/1.73 sqM) Est GFR (CKD-EPI)NonAf 87 (>60 ml/min/1.73 sqM) Glucose 106 H (74-99) mg/dL Plasma Lactic Acid Doin (0.7-2.0) mmol/L Calcium 9.3 (8.4-10.2) mg/dL Total Bilirubin 0.8 (0.2-1.3) mg/dL AST 102 H (17-59) U/L ALT 51 H (4-49) U/L Alkaline Phosphatase 80 (38-126) U/L Total Protein 7.4 (6.3-8.2) g/dL Albumin 4.4 (3.5-5.0) g/dL 03/18/23 Range/Units 15:03 WBC (3.8-10.6) k/uL RBC (4.30-5.90) m/uL Hgb (13.0-17.5) gm/dL Hct (39.0-53.0) % MCV (80.0-100.0) fL MCH (25.0-35.0) pg MCHC (31.0-37.0) g/dL RDW (11.5-15.5) % Plt Count (150-450) k/uL MPV Neutrophils % % Lymphocytes % % Monocytes % % Eosinophils % % Basophils % % Neutrophils # (1.3-7.7) k/uL Lymphocytes # (1.0-4.8) k/uL Monocytes # (0-1.0) k/uL Eosinophils # (0-0.7) k/uL Basophils # (0-0.2) k/uL PT (10.0-12.5) sec INR (<1.2) APTT (22.0-30.0) sec Sodium (137-145) mmol/L Potassium (3.5-5.1) mmol/L Chloride (98-107) mmol/L Carbon Dioxide (22-30) mmol/L Anion Gap mmol/L BUN (9-20) mg/dL Creatinine (0.66-1.25) mg/dL Est GFR (CKD-EPI)AfAm (>60 ml/min/1.73 sqM) Est GFR (CKD-EPI)NonAf (>60 ml/min/1.73 sqM) Glucose (74-99) mg/dL Plasma Lactic Acid Dion 1.2 (0.7-2.0) mmol/L Calcium (8.4-10.2) mg/dL Total Bilirubin (0.2-1.3) mg/dL AST (17-59) U/L ALT (4-49) U/L Alkaline Phosphatase (38-126) U/L Total Protein (6.3-8.2) g/dL Albumin (3.5-5.0) g/dL Disposition Clinical Impression: Upper gastrointestinal hemorrhage, Alcohol abuse Disposition: OTHER INSTITUTION NOT DEFINED Is patient prescribed a controlled substance at d/c from ED?: No Referrals: Cornelio Montesinos MD [Primary Care Provider] - 1-2 days - Out of Hospital Transfer - Req. Specs Out of Hospital Transfer - Requested Specifics: Other Emergency Center
[2023-03-18] MEDS ORDERED: cefTRIAXone IN SWFI 1,000 MG/10 ML SYRINGE IVP STA (18:03)
[2023-03-18] MEDS ORDERED: PANTOPRAZOLE 40 MG/10 ML VIAL IVP STA (18:03)
[2023-03-18] MEDS ORDERED: OCTREOTIDE 500 MCG in SODIUM CHLORIDE 0.9% 250 ML IV SCH (19:00)
[2023-03-18 19:49] VITALS: RESP 18
[2023-03-18 20:53] VITALS: BP 149/87; PULSE 66; TEMP 98.3
[2023-03-18] MEDS ORDERED: lisinopriL 10 MG TAB PO SCH (21:00)
== END 2023-03-18 20:35 | disposition other institution (70) ==
LOC: EC 14:22
DX: K92.2 Gastrointestinal hemorrhage, unspecified (principal); F10.10 Alcohol abuse, uncomplicated; K21.9 Gastro-esophageal reflux disease without esophagitis; E78.5 Hyperlipidemia, unspecified; M19.90 Unspecified osteoarthritis, unspecified site; G47.30 Sleep apnea, unspecified; I10 Essential (primary) hypertension; Z87.891 Personal history of nicotine dependence; Z79.82 Long term (current) use of aspirin; Z79.1 Long term (current) use of non-steroidal anti-inflammatories (NSAID); Z79.899 Other long term (current) drug therapy; Y90.0 Blood alcohol level of less than 20 mg/100 ml
CPT/HCPCS: 36415; 80053; 83605; 85025; 85610; 85730; 99285; 96365; 96366; 96375 ×2; J2354; J0696; C9113

== ENCOUNTER → 2023-04-14 | Outpatient (CLI) | payer MEDICARE ==
[2023-04-14 15:36] LABS: HCT 35.8 % (39.6-50.0); HGB 10.9 g/dL (13.0-17.0); MCH 27.3 pg (27.0-32.0); MCHC 30.4 g/dL (32.0-37.0); MCV 89.7 FL (80.0-97.0); Mean Platelet Volume 9.3 FL (9.5-12.2); NRBC Per 100 WBC 0 X 10*3/uL (0.00-0.01); Platelet Count 255 X 10*3/uL (140-440); RBC 3.99 X 10*6/uL (4.40-5.60); RDW 15.6 % (11.5-14.5); WBC 4.91 X 10*3/uL (4.50-10.00)
[2023-04-14 15:37] LABS: Basophils # (A) 0.12 X 10*3/uL (0.00-0.10); Basophils % (A) 2.4 %; Eosinophils # (A) 0.16 X 10*3/uL (0.04-0.35); Eosinophils % (A) 3.3 %; Immature Grans, Automated 0 %; Lymphocytes # (A) 1.35 X 10*3/uL (0.90-5.00); Lymphocytes % (A) 27.5 %; Monocytes # (A) 0.68 X 10*3/uL (0.20-1.00); Monocytes % (A) 13.8 %
== END | disposition home or self-care (01) ==
LOC: LABWHC1 11:07
PROVIDERS: ATTEND Internal Medicine Gastroenterology
DX: D50.0 Iron deficiency anemia secondary to blood loss (chronic) (principal)
CPT/HCPCS: 36415; 85025

== ENCOUNTER → 2023-06-28 | Outpatient (CLI) | payer MEDICARE ==
--- NOTE | 2023-06-28 13:30 | XR ---
EXAMINATION TYPE: XR chest 2V DATE OF EXAM: 06/28/2023 10:00 AM CLINICAL INDICATION:Male, 77 years old with history of R06.09 dyspnea; COMPARISON: Chest radiographs from 06/28/2023. TECHNIQUE: XR chest 2V Frontal and lateral views of the chest. FINDINGS: Lungs/Pleura: There is no evidence of pleural effusion, focal consolidation, or pneumothorax. Pulmonary vascularity: Unremarkable. Heart/mediastinum: Cardiomediastinal silhouette is unremarkable. Musculoskeletal: No acute osseous pathology. IMPRESSION: No acute cardiopulmonary disease/process.
== END | disposition home or self-care (01) ==
LOC: RADXRMAIN 09:43
PROVIDERS: ATTEND Family Medicine
DX: R06.09 Other forms of dyspnea (principal)
CPT/HCPCS: 71046

== ENCOUNTER → 2023-09-20 | Outpatient (CLI) | payer MEDICARE ==
--- NOTE | 2023-09-20 11:33 | XR ---
EXAMINATION TYPE: XR chest 2V DATE OF EXAM: 09/20/2023 11:28 AM COMPARISON: Chest radiographs from 06/28/2023 TECHNIQUE: XR chest 2V Frontal and lateral views of the chest. CLINICAL INDICATION:Male, 77 years old with history of J189 PNEUMONIA; FINDINGS: Lungs/Pleura: There is no evidence of pleural effusion, focal consolidation, or pneumothorax. Pulmonary vascularity: Unremarkable. Heart/mediastinum: Cardiomediastinal silhouette is unremarkable. Musculoskeletal: No acute osseous pathology. Multilevel degenerative disc disease of the visualized t horacic spine. IMPRESSION: No acute cardiopulmonary disease/process. No significant change from prior exam.
== END | disposition home or self-care (01) ==
LOC: RADXRMAIN 11:19
PROVIDERS: ATTEND Nurse Practitioner Family
DX: J18.9 Pneumonia, unspecified organism (principal)
CPT/HCPCS: 71046

== ENCOUNTER 2023-10-09 16:15 | Observation (INO) | payer MEDICARE ==
[~2023-10-09 16:15] MED LIST changes: -ACETAMINOPHEN TAB 500 MG TAB PO PRN; -DEXAMETHASONE SOD PHOSPHATE 4 MG/ML 1 ML VIAL IV ONE; +HEPARIN SOD,PORK IN 0.45% NACL 250 ML IV ONE; +HEPARIN SODIUM 1,000 UN/ML (10ML VL) ONE; -HYDROmorphone 0.5 MG/0.5 ML SYRINGE IVP PRN; -LACTATED RINGERS 1,000 ML IV SCH; -MELOXICAM 7.5 MG TAB PO PRN; -MIDAZOLAM 2 MG/2 ML VIAL IV PRN; -ONDANSETRON 4 MG/2 ML VIAL IVP ONE; -TRANEXAMIC ACID 1,000 MG in SODIUM CHLORIDE 0.9% 100 ML IVPB PRN
[2023-10-09] MEDS ORDERED: ASPIRIN 81 MG ONE (21:18)
[2023-10-09] MEDS ORDERED: lisinopriL 10 MG TAB ONE (21:18)
[2023-10-09] MEDS ORDERED: ATORVASTATIN 40 MG TAB ONE (21:18)
[2023-10-09] MEDS ORDERED: TEMAZEPAM 7.5 MG CAP ONE (21:18)
[2023-10-09] MEDS ORDERED: HEPARIN SODIUM 1,000 UN/ML (10ML VL) ONE (23:11)
[2023-10-10] MEDS ORDERED: PANTOPRAZOLE 40 MG TABLET PO ONE (08:49)
[2023-10-10] MEDS ORDERED: lisinopriL 10 MG TAB ONE ×2 (08:50→23:59)
[2023-10-10] MEDS ORDERED: FINASTERIDE 5 MG TAB ONE (08:50)
[2023-10-10] MEDS ORDERED: APIXABAN 5 MG TAB ONE ×2 (11:56→22:02)
[2023-10-10] MEDS ORDERED: METOPROLOL TARTRATE 25 MG TAB ONE ×2 (11:56→22:01)
[2023-10-10] MEDS ORDERED: ASPIRIN 81 MG ONE ×2 (22:01→23:59)
[2023-10-10] MEDS ORDERED: ATORVASTATIN 40 MG TAB ONE (22:01)
[2023-10-10] MEDS ORDERED: SODIUM CHLORIDE 0.9% 1,000 ML BAG ONE (23:59)
[2023-10-11] MEDS ORDERED: lisinopriL 10 MG TAB ONE (08:30)
[2023-10-11] MEDS ORDERED: PANTOPRAZOLE 40 MG TABLET PO ONE (08:31)
[2023-10-11] MEDS ORDERED: METOPROLOL TARTRATE 25 MG TAB ONE (08:31)
[2023-10-11] MEDS ORDERED: APIXABAN 5 MG TAB ONE (08:32)
[2023-10-11] MEDS ORDERED: FINASTERIDE 5 MG TAB ONE (08:32)
--- NOTE | 2023-11-30 13:18 | XR ---
EXAMINATION TYPE: XR chest 2V DATE OF EXAM: 10/09/2023 4:59 PM CLINICAL INDICATION: Chest Pain, SOB COMPARISON: THIS EXAM WAS READ DURING PACS DOWNTIME, NO PRIORS AVAILABLE. TECHNIQUE: XR chest 2V Frontal view of the chest. FINDINGS: Lungs/Pleura: There is no evidence of pleural effusion, focal consolidation, or pneumothorax. Pulmonary vascularity: Unremarkable. Heart/mediastinum: Cardiomediastinal silhouette is unremarkable. Musculoskeletal: No acute osseous pathology. Other findings: None IMPRESSION: No acute cardiopulmonary disease/process.
== END 2023-10-11 14:11 | disposition home or self-care (01) ==
LOC: 3SCARD 16:15
PROVIDERS: ADMIT Hospitalist; ATTEND Hospitalist
DX: I48.0 Paroxysmal atrial fibrillation (principal); I10 Essential (primary) hypertension; E78.5 Hyperlipidemia, unspecified; G47.33 Obstructive sleep apnea (adult) (pediatric); F10.90 Alcohol use, unspecified, uncomplicated; Z87.891 Personal history of nicotine dependence; Z95.5 Presence of coronary angioplasty implant and graft; Z79.01 Long term (current) use of anticoagulants; Z79.82 Long term (current) use of aspirin; Z79.899 Other long term (current) drug therapy
CPT/HCPCS: 71046

== ENCOUNTER → 2023-10-26 | Outpatient (CLI) | payer MEDICARE ==
[2023-10-26 15:23] LABS: Basophils # (A) 0.07 X 10*3/uL (0.00-0.10); Basophils % (A) 1.3 %; Eosinophils # (A) 0.12 X 10*3/uL (0.04-0.35); Eosinophils % (A) 2.2 %; HCT 41.1 % (39.6-50.0); HGB 12.5 g/dL (13.0-17.0); Lymphocytes # (A) 1.44 X 10*3/uL (0.90-5.00); MCH 26.5 pg (27.0-32.0); MCHC 30.4 g/dL (32.0-37.0); MCV 87.3 FL (80.0-97.0); Mean Platelet Volume 9.7 FL (9.5-12.2); Monocytes # (A) 0.77 X 10*3/uL (0.20-1.00); Monocytes % (A) 13.9 %; NRBC Per 100 WBC 0 X 10*3/uL (0.00-0.01); Neutrophils # (A) 3.12 X 10*3/uL (1.80-7.70); Neutrophils % (A) 56.2 %; Platelet Count 241 X 10*3/uL (140-440); RBC 4.71 X 10*6/uL (4.40-5.60); RDW 18.9 % (11.5-14.5); WBC 5.54 X 10*3/uL (4.50-10.00)
[2023-10-26 22:52] LABS: Blood Urea Nitrogen 20.7 mg/dL (9.0-27.0); Calcium 9.9 mg/dL (8.7-10.3); Carbon Dioxide 23.6 mmol/L (21.6-31.8); Chloride 104 mmol/L (96-109); Glucose 99 mg/dL (70-110); Potassium 4.7 mmol/L (3.5-5.5); Sodium 141 mmol/L (135-145); T4, Free (Free Thyroxine) 1.03 ng/dL (0.80-1.80)
== END ==
LOC: LABWHC1 11:53
PROVIDERS: ATTEND Internal Medicine Interventional Cardiology
DX: K92.2 Gastrointestinal hemorrhage, unspecified (principal)
CPT/HCPCS: 36415; 80048; 84439; 84443; 85025

== ENCOUNTER → 2024-01-24 | Outpatient (CLI) | payer MEDICARE | END | disposition home or self-care (01) | LOC: LABWHC1 11:01 | PROVIDERS: ATTEND Dermatology | DX: L20.89 Other atopic dermatitis (principal); Z79.899 Other long term (current) drug therapy | CPT/HCPCS: 36415; 86480 ==

== ENCOUNTER → 2024-04-26 | Outpatient (CLI) | payer MEDICARE ==
[2024-04-26 15:10] LABS: Basophils # (A) 0.08 X 10*3/uL (0.00-0.10); Basophils % (A) 1.6 %; Eosinophils # (A) 0.14 X 10*3/uL (0.04-0.35); Eosinophils % (A) 2.9 %; HCT 41.5 % (39.6-50.0); HGB 12.6 g/dL (13.0-17.0); Lymphocytes # (A) 1.38 X 10*3/uL (0.90-5.00); Lymphocytes % (A) 28.1 %; MCH 25.8 pg (27.0-32.0); MCHC 30.4 g/dL (32.0-37.0); MCV 84.9 FL (80.0-97.0); Mean Platelet Volume 9.8 FL (9.5-12.2); Monocytes # (A) 0.67 X 10*3/uL (0.20-1.00); Monocytes % (A) 13.6 %; NRBC Per 100 WBC 0 X 10*3/uL (0.00-0.01); Neutrophils # (A) 2.62 X 10*3/uL (1.80-7.70); Neutrophils % (A) 53.4 %; Platelet Count 231 X 10*3/uL (140-440); RBC 4.89 X 10*6/uL (4.40-5.60); RDW 17.1 % (11.5-14.5); WBC 4.91 X 10*3/uL (4.50-10.00)
[2024-04-26 15:28] LABS: Blood Urea Nitrogen 15.3 mg/dL (9.0-27.0); Calcium 9.1 mg/dL (8.7-10.3); Carbon Dioxide 23.2 mmol/L (21.6-31.8); Chloride 105 mmol/L (96-109); Glucose 125 mg/dL (70-110); Potassium 4.4 mmol/L (3.5-5.5); Sodium 140 mmol/L (135-145)
== END | disposition home or self-care (01) ==
LOC: LABPAT 11:01
PROVIDERS: ATTEND Orthopaedic Surgery
DX: Z01.812 Encounter for preprocedural laboratory examination (principal); G56.01 Carpal tunnel syndrome, right upper limb
CPT/HCPCS: 80048; 85025

== ENCOUNTER → 2024-05-09 | Day surgery (SDC) | payer MEDICARE ==
--- NOTE | 2024-05-08 09:15 | P.HPOR ---
History of Present Illness H&P Date: 05/08/24 Chief Complaint: Right hand pain and numbness The patient is a 78-year-old [id number] gentleman who presents with right hand pain and numbness for the past several years worsening recently. He notes numbness and tingling along with loss of strength. He is having night symptoms. He has tried bracing and medications without much relief. He notes significant daily symptoms. 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 tinnitis pedrito ears. History of Any Multi-Drug Resistant Organisms: None Reported Past Surgical History: Joint Replacement Additional Past Surgical History / Comment(s): sinus sx x2, testicular hydrocele repair with Dr. Bowen in 2008, rt knee replaced. Past Anesthesia/Blood Transfusion Reactions: Motion Sickness, Postoperative Nausea & Vomiting (PONV) Smoking Status: Former smoker - Past Family History Mother Family Medical History: Cancer Additional Family Medical History / Comment(s): bone cancer 1975 Father Family Medical History: Congestive Heart Failure (CHF) Medications and Allergies Home Medications Medication Instructions Recorded Confirmed Type Simvastatin 40 mg PO HS 08/31/15 05/05/24 History lisinopriL [Zestril] 5 mg PO BID 01/02/21 05/05/24 History Dutasteride 0.5 mg PO DAILY 06/23/22 05/05/24 History Dupilumab [Dupixent Pen] 300 mg SQ Q14D 03/18/23 05/05/24 History EPINEPHrine (Auto Inject) [Epipen] 0.3 mg IM ONCE PRN 03/18/23 05/05/24 History Pantoprazole [Protonix] 40 mg PO DAILY 03/18/23 05/05/24 History Acetaminophen [Tylenol Extra 1,000 mg PO TID 05/05/24 05/05/24 History Strength] Apixaban [Eliquis] 5 mg PO BID 05/05/24 05/05/24 History Tamsulosin HCl [Flomax] 0.4 mg PO HS 05/05/24 05/05/24 History Vit B3 (Unk) 1 tab PO DAILY 05/05/24 05/05/24 History Allergies Allergy/AdvReac Type Severity Reaction Status Date / Time No Known Allergies Allergy Verified 05/05/24 08:23 Physical Examination - Wrist & Hand right Tests: Tinel's sign median nerve: positive, carpal tunnel tests: positive Results The patient is a well-developed well-nourished male approximately 6 foot 1, 262 pounds of endomorphic habitus. HEENT exam is nonfocal, neck is supple. He is nontender about the right shoulder and elbow. On examination of the right wrist, he has moderate thenar atrophy. Abductor pollicis brevis strength 4/5. Light touch is diminished in the right thumb, index, and middle fingers. He has full digital range of motion. Assessment and Plan Assessment: Right carpal tunnel syndromesymptomatic Plan: I talked to the patient at length regarding his condition along with treatment options. At this point he is quite symptomatic despite conservative measures. After a thorough discussion he opts to proceed with surgery. We will plan to proceed with right carpal tunnel release. Risks and benefits were discussed at length in layman's terms. We will likely perform that as an outpatient procedure utilizing local anesthetic and IV sedation.
[~2024-05-09] MED LIST changes: +GLYCOPYRROLATE 0.2 MG/ML 2 ML VIAL ONE; -HEPARIN SOD,PORK IN 0.45% NACL 250 ML IV ONE; -HEPARIN SODIUM 1,000 UN/ML (10ML VL) ONE; +HYDROmorphone 0.5 MG/0.5 ML SYRINGE IVP PRN; +MIDAZOLAM 2 MG/2 ML VIAL IV PRN; +MIDAZOLAM 2 MG/2 ML VIAL ONE; +PROPOFOL 10 MG/ML 20 ML VIAL IV ONE; +fentaNYL (PF) 50 MCG/ML 2 ML AMP IVP PRN; +fentaNYL (PF) 50 MCG/ML 2 ML AMP ONE
[2024-05-09] MEDS: ONDANSETRON 4 MG/2 ML VIAL IVP ONE (09:13)
[2024-05-09] MEDS: LIDOCAINE 1% (10MG/ML) FOR IV START INTRADERMA PRN (09:13)
[2024-05-09] MEDS: IV FLUID CONTINUATION 1,000 ML IV ONE (09:13)
[2024-05-09] MEDS: LACTATED RINGERS 1,000 ML IV SCH (09:13)
[2024-05-09] MEDS: DEXAMETHASONE SOD PHOSPHATE 4 MG/ML 1 ML VIAL IV ONE (09:14)
[2024-05-09 09:27] VITALS: TEMP 97.2
[2024-05-09] MEDS: BUPIVACAINE (PF) 0.25% 30 ML VIAL SQ ONE (09:39)
--- NOTE | 2024-05-09 10:01 | P.OP ---
Date of Procedure: 05/09/24 Preoperative Diagnosis: Right carpal tunnel syndromesymptomatic Postoperative Diagnosis: Same Procedure(s) Performed: Right carpal tunnel release Anesthesia: MAC, local Surgeon: Shay Landers Estimated Blood Loss (ml): 1 Pathology: none sent Condition: stable Disposition: PACU Indications for Procedure: The patient is a 78-year-old male who presents with progressive right hand pain and numbness despite conservative measures. A discussion of the risks and benefits of right carpal tunnel release was made with the patient. He opted to proceed. Operative risks include infection, neurovascular injury, development of blood clots, possible incomplete resolution of symptoms, possible recurrence of symptoms and need for subsequent procedures was discussed. Informed consent was obtained. Operative Findings: As below Description of Procedure: The patient was brought to the operating room, and after induction of IV sedation the right upper extremity was prepped and draped in normal fashion. The proposed incision site was outlined skin marker in line with the radial aspect the fourth ray extending from the volar wrist crease distally 2-1/2 cm. One quarter percent plain Marcaine was injected into the proposed incision site. 9 mL was utilized. The tourniquet was inflated to 250 mmHg. The skin incision was then made. The skin was incised sharply. Subcutaneous tissues were divided sharply the superficial palmar fascia was identified and split in line with the skin incision. The transverse carpal ligament was identified and transected under direct visualization distally to level the palmar fat pad. Proximal was taken level of the volar wrist crease. A plane above and below the transverse carpal ligament was then bluntly developed with tenotomies. The confluence of the distal forearm fascia and the transverse carpal ligament was then transected under direct visualization proximally with the tines pointed in the ulnar direction. I felt this was adequate proximal release. Neural lysis was not per formed. The wound was irrigated with normal saline. Electrocautery was used for hemostasis. The skin was reapproximated with simple 3-0 nylon sutures. A sterile dressing was applied. The tourniquet was deflated with less than 15 minutes total tourniquet time. Patient was awoken from sedation and transferred to the recovery room in good condition. Blood loss was estimated 1 mL. No complications were incurred. Sponge and needle counts were correct at the end of the case.
[2024-05-09 10:43] VITALS: BP 110/63; PULSE 46; RESP 17
== END | disposition home or self-care (01) ==
LOC: OR 08:21
PROVIDERS: ATTEND Orthopaedic Surgery
DX: G56.01 Carpal tunnel syndrome, right upper limb (principal); E78.5 Hyperlipidemia, unspecified; I10 Essential (primary) hypertension; I48.91 Unspecified atrial fibrillation; G47.33 Obstructive sleep apnea (adult) (pediatric); K21.9 Gastro-esophageal reflux disease without esophagitis; M19.90 Unspecified osteoarthritis, unspecified site; H91.90 Unspecified hearing loss, unspecified ear; Z79.01 Long term (current) use of anticoagulants; Z87.891 Personal history of nicotine dependence; Z99.89 Dependence on other enabling machines and devices; Z79.1 Long term (current) use of non-steroidal anti-inflammatories (NSAID); Z79.899 Other long term (current) drug therapy
CPT/HCPCS: 64721; J2250; J1100; J0690; J2405; J3010; J2704; J0665; J1596

== ENCOUNTER → 2024-08-11 | Outpatient (CLI) | payer MEDICARE ==
--- NOTE | 2024-08-18 04:51 | EST ---
EXERCISE STRESS STUDY PERFORMED: Holter monitor. CLINICAL INFORMATION: Baseline rhythm is a sinus mechanism. The average rate is 53 beats per minute, minimum of 36, maximum of 169 beats per minute. Ventricular ectopic activity is present in form of rare single PACs. Supraventricular ectopic activity was present in form of rare single PACs with short bursts of atrial tachycardia. Symptoms of dizziness, shortness of breath did not correlate with any dysrhythmia. CONCLUSION: 1. Sinus bradycardia, baseline rhythm. 2. Rare ventricular ectopic activity. 3. Rare supraventricular ectopic activity. 4. Symptoms did not correlate with any dysrhythmia. MMODL / IJN: [id number] /
== END | disposition home or self-care (01) ==
LOC: RADECHMAIN 13:45
PROVIDERS: ATTEND Family Medicine
DX: I49.3 Ventricular premature depolarization (principal); I47.19 Other supraventricular tachycardia; R00.1 Bradycardia, unspecified
CPT/HCPCS: 93225

== ENCOUNTER 2024-08-31 10:45 | Emergency (ER) | payer MEDICARE ==
[2024-08-31 10:50] VITALS: TEMP 98.8
--- NOTE | 2024-08-31 11:10 | ED ---
Abdominal Pain HPI - General Chief Complaint: Abdominal Pain Stated Complaint: Nausea/Shortness of breath/Abd pain Time Seen by Provider: 08/31/24 10:51 Source: patient, RN notes reviewed Mode of arrival: ambulatory Limitations: no limitations - History of Present Illness Initial Comments: This is a 78-year-old male who presents to the emergency department for abdominal pain and nausea. States that he has felt bloated for the last couple of days and has not been able to have a bowel movement. Last night and this morning he was feeling very nauseous. Does not believe he has passed any gas today. Denies any history of bowel obstructions or similar problems in the past. Denies any fevers or chills. He does report feeling some shortness of breath with exertion as well. States that this has been an ongoing issue and he is waiting for the results of a Holter monitor to come back. He notes that he has been bradycardic, however this has also been a relatively stable issue and he denies any symptoms associated with this. Denies any chest pain. MD Complaint: abdominal pain - Related Data Home Medications Medication Instructions Recorded Confirmed Simvastatin 40 mg PO HS 08/31/15 05/05/24 lisinopriL [Zestril] 5 mg PO BID 01/02/21 05/05/24 Dutasteride 0.5 mg PO DAILY 06/23/22 05/05/24 Dupilumab [Dupixent Pen] 300 mg SQ Q14D 03/18/23 05/05/24 EPINEPHrine (Auto Inject) [Epipen] 0.3 mg IM ONCE PRN 03/18/23 05/05/24 Pantoprazole [Protonix] 40 mg PO DAILY 03/18/23 05/05/24 Acetaminophen [Tylenol Extra 1,000 mg PO TID 05/05/24 05/05/24 Strength] Apixaban [Eliquis] 5 mg PO BID 05/05/24 05/05/24 Tamsulosin HCl [Flomax] 0.4 mg PO HS 05/05/24 05/05/24 Vit B3 (Unk) 1 tab PO DAILY 05/05/24 05/05/24 Previous Rx's Medication Instructions Recorded Acetaminophen-Codeine 300-30mg 1 tab PO Q8H PRN #12 tablet 05/09/24 [Tylenol w/codeine #3] Cefpodoxime Proxetil [Vantin] 200 mg PO Q12HR 10 Days #20 tab 08/31/24 Ondansetron Odt [Zofran Odt] 4 mg PO Q8HR PRN #15 tab 08/31/24 Allergies Allergy/AdvReac Type Severity Reaction Status Date / Time No Known Allergies Allergy Verified 08/31/24 10:50 Review of Systems ROS Statement: Those systems with pertinent positive or pertinent negative responses have been documented in the HPI. ROS Other: All systems not noted in ROS Statement are negative. 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 tinnitis pedrito ears. History of Any Multi-Drug Resistant Organisms: None Reported Past Surgical History: Joint Replacement Additional Past Surgical History / Comment(s): sinus sx x2, testicular hydrocele repair with Dr. Bowen in 2008, rt knee replaced. Past Anesthesia/Blood Transfusion Reactions: Motion Sickness, Postoperative Nausea & Vomiting (PONV) Past Psychological History: No Psychological Hx Reported Smoking Status: Former smoker Past Alcohol Use History: None Reported Past Drug Use History: None Reported - Past Family History Mother Family Medical History: Cancer Additional Family Medical History / Comment(s): bone cancer 1975 Father Family Medical History: Congestive Heart Failure (CHF) General Exam Limitations: no limitations General appearance: alert, in no apparent distress Head exam: Present: atraumatic, normocephalic, normal inspection Respiratory exam: Present: normal lung sounds bilaterally. Absent: respiratory distress, wheezes, rales, rhonchi, stridor Cardiovascular Exam: Present: normal rhythm, bradycardia GI/Abdominal exam: Present: soft. Absent: distended, tenderness Neurological exam: Present: alert, oriented X3, CN II-XII intact Psychiatric exam: Present: normal affect, normal mood Skin exam: Present: warm, dry, intact, normal color. Absent: rash Course Vital Signs 08/31/24 08/31/24 10:47 13:19 Temperature 98.8 F Pulse Rate 54 L 52 L Respiratory 20 16 Rate Blood Pressure 113/63 115/65 O2 Sat by Pulse 96 96 Oximetry Medical Decision Making - Medical Decision Making This is a 78-year-old male who presents to the emergency department for abdominal pain. Was pt. sent in by a medical professional or institution? @ -No Did you speak to anyone other than the patient for history? @ -No Did you review nursing and triage notes? @ -Yes, and I agree, it is accurate with regards to the patient's symptoms. Were old charts reviewed? @ -No Differential Diagnosis? @ -Differential Abdominal Pain Men: Appendicitis, cholecystitis, diverticulosis, ischemic bowel, pancreatitis, hepatitis, UTI, gastroenteritis, AAA, incarcerated hernia, bowel obstruction, constipation, inflammatory bowel, hepatitis, peptic ulcer disease, splenic infarction, perforated viscus, testicular torsion, this is not meant to be an all-inclusive list EKG interpreted by me (3pts min.)? @ -EKG interpreted by me demonstrating the following: Sinus bradycardia. Ventricular rate 42 bpm, WA interval 205 ms, QRS duration 114 ms, QTc 446 ms. X-rays interpreted by me (1pt min.)? @ -KUB x-ray obtained. My interpretation identifies no dilation of the bowel loops. CT interpreted by me (1pt min.)? @ -CT scan of the abdomen and pelvis obtained. My interpretation identifies no ureteral calculus. U/S interpreted by me (1pt. min.)? @ -Not obtained What testing was considered but not performed? (CT, X-rays, U/S, labs)? Why? @ -None What meds were considered but not given? Why? @ -None Did you discuss the management of the patient with other professionals? @ -No Did you reconcile home meds? @ -No Was smoking cessation discussed for >3mins.? @ -No Was critical care preformed (if so, how long)? @ -No Were there social determinants of health that impacted care today? How? (Homelessness, low income, unemployed, alcoholism, drug addiction, transportation, low edu. Level, literacy, decrease access to med. care, half-way, rehab)? @ -No Was there de-escalation of care discussed even if they declined? (Discuss DNR or withdrawal of care, Hospice)? @ -No What co-morbidities impacted this encounter? (DM, HTN, Smoking, COPD, CAD, Cancer, CVA, Hep., AIDS, mental health diagnosis, sleep apnea, morbid obesity)? @ -A-fib, HTN Was patient admitted / discharged? @ -Discharged. Lab work unremarkable. Urinalysis consistent with infection. Urine sent for culture. Patient does admit to some burning with urination. KUB x-ray obtained demonstrating a calculus in the right upper quadrant that may represent a gallstone versus renal calculus. Given that he did have blood in his urine, we proceeded with a CT scan to evaluate for any signs of a ureteral calculus, which will affect management. CT scan of the abdomen and pelvis demonstrates no renal calcification or hydronephrosis. He does have prostatic hypertrophy with mass effect on the bladder base. The calculus identified on the x-ray was a large laminated gallstone. There is no evidence of acute cholecystitis. He was bradycardic in the emergency department, which is a stable and ongoing finding for him according to the patient. He is following with his PCP and vice president media relations regarding this and denies any symptoms associated with this. Current symptoms likely attributed to the UTI. He was made aware of the gallstone and that he should return to the emergency department or follow-up with his PCP if he becomes symptomatic with this. 2 g of ceftriaxone administered in the emergency department for the UTI. Prescription for cefpodoxime and Zofran provided for further management. Advised follow-up with his PCP for reevaluation. Patient discharged home in stable condition. Case discussed with ED attending Dr. Omer. Return precautions reviewed in depth, the patient is instructed to return to the emergency department with any new, worsening, or concerning symptoms. Patient verbalized understanding. Undiagnosed new problem with uncertain prognosis? @ -None Drug Therapy requiring intensive monitoring for toxicity (Heparin, Nitro, Insulin, Cardizem)? @ -None Were any procedures done? @ -None Diagnosis/symptom? @ -UTI, nausea, bloating, gallstone Acute, or Chronic, or Acute on Chronic? @ -Acute Uncomplicated (without systemic symptoms) or Complicated (systemic symptoms)? @ -Uncomplicated Side effects of treatment? @ -None Exacerbation, Progression, or Severe Exacerbation] @ -Not applicable Poses a threat to life or bodily function? @ -No - Lab Data Result diagrams: 08/31/24 11:29 08/31/24 11:29 Lab Results 08/31/24 08/31/24 08/31/24 Range/Units 11:29 11:29 11:29 WBC 8.43 (4.50-10.00) 10*3/uL RBC 4.59 (4.40-5.60) 10*6/uL Hgb 12.8 L (13.0-17.0) g/dL Hct 40.0 (39.6-50.0) % MCV 87.1 (80.0-97.0) fL MCH 27.9 (27.0-32.0) pg MCHC 32.0 (32.0-37.0) g/dL Plt Count 201 (140-440) 10*3/uL MPV 9.3 L (9.5-12.2) fL Immature Gran % (Auto) 0.4 % Neutrophils % 78.6 % Lymphocytes % 9.5 % Monocytes % 10.9 % Eosinophils % 0.1 % Basophils % 0.5 % Immature Gran # 0.03 (0.00-0.04) 10*3/uL Neutrophils # 6.63 (1.80-7.70) 10*3/uL Lymphocytes # 0.80 L (0.90-5.00) 10*3/uL Monocytes # 0.92 (0.20-1.00) 10*3/uL Eosinophils # 0.01 L (0.04-0.35) 10*3/uL Basophils # 0.04 (0.00-0.10) 10*3/uL Sodium 142 (137-145) mmol/L Potassium 4.3 (3.5-5.1) mmol/L Chloride 108 H (98-107) mmol/L Carbon Dioxide 22 (22-30) mmol/L Anion Gap 12 mmol/L BUN 21 H (9-20) mg/dL Creatinine 0.97 (0.66-1.25) mg/dL Est GFR (CKD-EPI)AfAm 88 (>60 ml/min/1.73 sqM) Est GFR (CKD-EPI)NonAf 76 (>60 ml/min/1.73 sqM) Glucose 121 H (74-99) mg/dL Plasma Lactic Acid Dion 1.0 (0.7-2.0) mmol/L Calcium 9.3 (8.4-10.2) mg/dL Magnesium 1.9 (1.6-2.3) mg/dL Total Bilirubin 1.1 (0.2-1.3) mg/dL AST 34 (17-59) U/L ALT 17 (4-49) U/L Alkaline Phosphatase 67 (38-126) U/L Total Protein 7.1 (6.3-8.2) g/dL Albumin 4.4 (3.5-5.0) g/dL Lipase 114 (23-300) U/L Urine Color Urine Appearance (Clear) Urine pH (5.0-8.0) Ur Specific [place] (1.001-1.035) Urine Protein (Negative) Urine Glucose (UA) (Negative) Urine Ketones (Negative) Urine Blood (Negative) Urine Nitrite (Negative) Urine Bilirubin (Negative) Urine Urobilinogen (<2.0) mg/dL Ur Leukocyte Esterase (Negative) Urine RBC (0-5) /hpf Urine WBC (0-5) /hpf Urine WBC Clumps (None) /hpf Ur Squamous Epith Cells (0-4) /hpf Urine Bacteria (None) /hpf Urine Mucus (None) /hpf 08/31/24 Range/Units 11:47 WBC (4.50-10.00) 10*3/uL RBC (4.40-5.60) 10*6/uL Hgb (13.0-17.0) g/dL Hct (39.6-50.0) % MCV (80.0-97.0) fL MCH (27.0-32.0) pg MCHC (32.0-37.0) g/dL Plt Count (140-440) 10*3/uL MPV (9.5-12.2) fL Immature Gran % (Auto) % Neutrophils % % Lymphocytes % % Monocytes % % Eosinophils % % Basophils % % Immature Gran # (0.00-0.04) 10*3/uL Neutrophils # (1.80-7.70) 10*3/uL Lymphocytes # (0.90-5.00) 10*3/uL Monocytes # (0.20-1.00) 10*3/uL Eosinophils # (0.04-0.35) 10*3/uL Basophils # (0.00-0.10) 10*3/uL Sodium (137-145) mmol/L Potassium (3.5-5.1) mmol/L Chloride (98-107) mmol/L Carbon Dioxide (22-30) mmol/L Anion Gap mmol/L BUN (9-20) mg/dL Creatinine (0.66-1.25) mg/dL Est GFR (CKD-EPI)AfAm (>60 ml/min/1.73 sqM) Est GFR (CKD-EPI)NonAf (>60 ml/min/1.73 sqM) Glucose (74-99) mg/dL Plasma Lactic Acid Dion (0.7-2.0) mmol/L Calcium (8.4-10.2) mg/dL Magnesium (1.6-2.3) mg/dL Total Bilirubin (0.2-1.3) mg/dL AST (17-59) U/L ALT (4-49) U/L Alkaline Phosphatase (38-126) U/L Total Protein (6.3-8.2) g/dL Albumin (3.5-5.0) g/dL Lipase (23-300) U/L Urine Color Yellow Urine Appearance Turbid (Clear) Urine pH 5.5 (5.0-8.0) Ur Specific [place] 1.024 (1.001-1.035) Urine Protein 2+ H (Negative) Urine Glucose (UA) Negative (Negative) Urine Ketones Negative (Negative) Urine Blood Large H (Negative) Urine Nitrite Positive (Negative) Urine Bilirubin Negative (Negative) Urine Urobilinogen <2.0 (<2.0) mg/dL Ur Leukocyte Esterase Large H (Negative) Urine RBC 72 H (0-5) /hpf Urine WBC >182 H (0-5) /hpf Urine WBC Clumps Many H (None) /hpf Ur Squamous Epith Cells 1 (0-4) /hpf Urine Bacteria Rare H (None) /hpf Urine Mucus Few H (None) /hpf - Radiology Data Radiology results: report reviewed, image reviewed Disposition Clinical Impression: UTI (urinary tract infection), Nausea & vomiting, Cholelithiasis Disposition: HOME SELF-CARE Instructions (If sedation given, give patient instructions): Urinary Tract Infection in Men (ED) Additional Instructions: Return to the emergency department with any new, worsening, or concerning symptoms. Take the antibiotic as prescribed for 10 days. If you become nauseous, you can take the Zofran up to every 8 hours as needed for nausea and vomiting. Follow up with your primary care provider in 1-2 days. Prescriptions: Cefpodoxime Proxetil [Vantin] 200 mg PO Q12HR 10 Days #20 tab Ondansetron Odt [Zofran Odt] 4 mg PO Q8HR PRN #15 tab PRN Reason: Nausea And Vomiting Is patient prescribed a controlled substance at d/c from ED?: No Referrals: Cornelio Montesinos MD [Primary Care Provider] - 1-2 days Time of Disposition: 14:21
[2024-08-31 11:43] LABS: Basophils # (A) 0.04 10*3/uL (0.00-0.10); Basophils % (A) 0.5 %; Eosinophils # (A) 0.01 10*3/uL (0.04-0.35); Eosinophils % (A) 0.1 %; HCT 40.0 % (39.6-50.0); HGB 12.8 g/dL (13.0-17.0); Lymphocytes # (A) 0.80 10*3/uL (0.90-5.00); Lymphocytes % (A) 9.5 %; MCH 27.9 pg (27.0-32.0); MCHC 32.0 g/dL (32.0-37.0); MCV 87.1 fL (80.0-97.0); Monocytes # (A) 0.92 10*3/uL (0.20-1.00); Monocytes % (A) 10.9 %; Neutrophils # (A) 6.63 10*3/uL (1.80-7.70); Neutrophils % (A) 78.6 %; Platelet Count 201 10*3/uL (140-440); RBC 4.59 10*6/uL (4.40-5.60); RDW 15.7 % (11.5-14.5); WBC 8.43 10*3/uL (4.50-10.00)
[2024-08-31] MEDS: SODIUM CHLORIDE 0.9% 1,000 ML IV ONE (11:44)
[2024-08-31 12:00] LABS: ALT 17 U/L (4-49); AST 34 U/L (17-59); African American GFR (CKD) 88 (>60 ml/min/1.73 sqM); Albumin 4.4 g/dL (3.5-5.0); Alkaline Phosphatase 67 U/L (38-126); Anion Gap 12 mmol/L; Blood Urea Nitrogen 21 mg/dL (9-20); Calcium 9.3 mg/dL (8.4-10.2); Carbon Dioxide 22 mmol/L (22-30); Chloride 108 mmol/L (98-107); Glucose 121 mg/dL (74-99); Lipase 114 U/L (23-300); Magnesium 1.9 mg/dL (1.6-2.3); Non-African American GFR(CKD) 76 (>60 ml/min/1.73 sqM); Potassium 4.3 mmol/L (3.5-5.1); Sodium 142 mmol/L (137-145); Total Protein 7.1 g/dL (6.3-8.2)
[2024-08-31 12:04] LABS: Bacteria,Urine Rare /hpf; Bilirubin,Urine Negative (Negative); Blood,Urine Large (Negative); Color,Urine Yellow; Glucose,Urine (UA) Negative (Negative); Ketones,Urine Negative (Negative); Leukocyte Esterase,Urine Large (Negative); Mucus,Urine Few /hpf; Nitrite,Urine Positive (Negative); PH, Urine 5.5 (5.0-8.0); Protein,Urine 2+ (Negative); RBC,Urine 72 /hpf (0-5); Specific Gravity,Urine 1.024 (1.001-1.035); Squamous Epithelial Cell,Urine 1 /hpf (0-4); Urobilinogen,Urine <2.0 mg/dL (<2.0); WBC,Urine >182 /hpf (0-5)
--- NOTE | 2024-08-31 12:47 | XR ---
EXAMINATION TYPE: XR KUB DATE OF EXAM: 08/31/2024 COMPARISON: Chest radiograph 11/06/2023 HISTORY: Pain TECHNIQUE: Single upright KUB image of the abdomen is obtained FINDINGS: Small bowel demonstrates no evidence for dilatation or air fluid levels. Gas and fecal material is seen in non-distended colon. No convincing evidence for pneumoperitoneum. 3.3 cm calculus within the region of the right upper quadrant. The lung bases are clear. The osseous structures are intact. Multilevel degenerative disc disease of the visualized thoracolumb ar spine. IMPRESSION: 1. Overall nonobstructive bowel gas pattern. Mild colonic stool burden. 2. Calculus within the region of the right upper quadrant. May represent a gallstone versus renal ca lculus. [facility], , 08/31/2024 12:45 PM
[2024-08-31] MEDS: cefTRIAXone IN SWFI 1,000 MG/10 ML SYRINGE IVP STA (13:21)
--- NOTE | 2024-08-31 14:07 | CT ---
EXAMINATION TYPE: CT abdomen pelvis wo con DATE OF EXAM: 08/31/2024 COMPARISON: None CLINICAL INDICATION: Male, 78 years old with history of Abdominal pain, possible calculus on x-ray; P HH, t sided pain TECHNIQUE: CT scan of the abdomen and pelvis is performed without oral or IV contrast. CT DLP: 1200.[address] CTDI: mGy Automated exposure control for dose reduction was used. FINDINGS: Within the limitations of a non-contrast study, the following observations are made. The lungs are clear. There is a large laminated gallstone but no gallbladder distention, wall thickening or pericholecysti c fluid. There is no biliary ductal dilatation. There is no organomegaly of the liver, pancreas, spleen or adrenal glands. There are no renal calcifications or hydronephrosis. The caliber of the abdominal aorta is normal and there is no retroperitoneal adenopathy or hemorrhage . The bowel loops are normal in caliber is no evidence of obstruction. No inflammatory changes are iden tified in the mesentery and there is no free intraperitoneal air or fluid. There is no pelvic mass, free fluid, abscess or adenopathy. There is marked diverticulosis of the col on without CT evidence of diverticulitis. The osseous structures and soft tissues are unremarkable. There is moderate prostatic hypertrophy with mass effect on the bladder base. IMPRESSION: 1. No renal calcification or hydronephrosis. 2. Moderate prostatic hypertrophy with mass effect on bladder base. 3. large laminated gallstone without evidence of acute cholecystitis. [facility], , 08/31/2024 2:04 PM
[2024-08-31 15:11] VITALS: BP 142/85; PULSE 54; RESP 20
== END 2024-08-31 15:10 | disposition home or self-care (01) ==
LOC: EC 10:45
DX: K80.20 Calculus of gallbladder without cholecystitis without obstruction (principal); N39.0 Urinary tract infection, site not specified; R11.2 Nausea with vomiting, unspecified; I48.91 Unspecified atrial fibrillation; I10 Essential (primary) hypertension; Z87.891 Personal history of nicotine dependence
CPT/HCPCS: 36415; 93005; 80053; 83605; 83690; 83735; 85025; 81001; 87086; 74018; 74176; 99285; 96374; 96361 ×2; J0696